=== PATIENT | female | born 1940 | race Caucasian/White ===

== ENCOUNTER 2020-01-29 11:52 | Outpatient (CLI) | payer MEDICARE | END 2020-01-29 23:59 | disposition home or self-care (01) | LOC: CFH 11:52 | PROVIDERS: ATTEND Internal Medicine Cardiovascular Disease | DX: I08.3 Combined rheumatic disorders of mitral, aortic and tricuspid valves (principal); I10 Essential (primary) hypertension; E78.5 Hyperlipidemia, unspecified; Z87.891 Personal history of nicotine dependence | CPT/HCPCS: 93306 ==